=== PATIENT | female | born 1965 | race Caucasian/White ===

== ENCOUNTER 2016-09-13 00:57 | Emergency (ER) | payer OTHER ==
[~2016-09-13] VITALS: Ht 149.9 cm; Wt 90.3 kg
[~2016-09-13 00:57] MED LIST: ADVIN25/60 INH; CYM/60 PO; LOSA100T65 PO; OXYC-106 PO; ZOLP5TAB PO
[2016-09-13 01:05] VITALS: TEMP 36.7; O2SAT 98; Ht 149.9 cm; Wt 90.3 kg
--- NOTE | 2016-09-13 01:28 | EMERGENCY ROOM VISIT NOTE ---
History Report prepared by Fredibreuben: Jovon Marcelino Under the Supervision of: Dr. Nasim Ford D.O. First contact with patient: 01:17 Chief Complaint: FALL Stated Complaint: FALL-HIT FACE-RIGHT SIDE History of Present Illness The patient is a 51 year old female with a history of ALS who presents to the Emergency Room with complaints of an acute fall that occurred earlier tonight. The patient states that she lost her balance causing the fall. She did not fall due to syncope. She hit her face on the ground when she fell. She has not had any dizziness or lightheadedness since the fall. She now complains of headache and neck pain. The patient denies numbness or tingling in the extremities. The patient was seen at [facility] where they did not do anything. Source of History: patient Onset: tonight Position: other (global) Quality: other (fall) Timing: other (acute) Associated Symptoms: + headache, + neck pain, No LOC, No numbness, No weakness Review of Systems See HPI for pertinent positives and negatives. A total of ten systems were reviewed and were otherwise negative. Past Medical & Surgical Medical Problems: (1) ALS (amyotrophic lateral sclerosis) (2) Arthritis (3) Asthma (4) Fibromyalgia Family History Patient reports no known family medical history. Social History Smoking Status: Current Every Day Smoker Marital Status: Housing Status: lives with family Current/Historical Medications Scheduled Duloxetine HCl (Cymbalta), 60 MG PO DAILY Fluticasone Prop/Salmeterol (Advair Diskus 250/50 60 Dose), 1 PUFF INH BID Losartan Potassium (Cozaar), 100 MG PO DAILY Zolpidem Tartrate (Ambien), 5 MG PO HS Scheduled PRN Oxycodone/Acetaminophen 10MG/325MG (Percocet 10MG/325MG), 1 TAB PO DIRECTED PRN for Pain Allergies Coded Allergies: Penicillins (Unverified Allergy, Unknown, UNKNOWN, 12/23/15) Physical Exam Vital Signs Date Time Temp Pulse Resp B/P Pulse Ox O2 Delivery O2 Flow Rate FiO2 09/13/16 01:05 36.7 90 20 158/97 98 Room Air Physical Exam GENERAL: Awake, alert, well-appearing, in no distress HENT: Normocephalic. Abrasion to the left cheek. Oropharynx unremarkable. EYES: Normal conjunctiva. Sclera non-icteric. NECK: Cervical collar in place. RESPIRATORY: Clear to auscultation. CARDIAC: Regular rate, normal rhythm. Extremities warm and well perfused. Pulses equal. ABDOMEN: Soft, non-distended. No tenderness to palpation. No rebound or guarding. No masses. RECTAL: Deferred. MUSCULOSKELETAL: Mild left chest wall tenderness, no obvious deformities no crepitus.. The back is symmetrical on inspection without obvious abnormality. There is no CVA tenderness to palpation. No joint edema. UPPER EXTREMITIES: Flexion contractures of the hands. LOWER EXTREMITIES: Calves are equal size bilaterally and non-tender. No edema. No discoloration. NEURO: Normal sensorium. No sensory or motor deficits noted. SKIN: No rash or jaundice noted. Medical Decision & Procedures ER Provider Diagnostic Interpretation: X ray results as stated below per my interpretation. Other radiology results as stated below per my review and radiologist interpretation Chest One View Portable: Negative Chest X-ray. CT HEAD: No evidence of skull fracture. Clear paranasal sinuses and mastoid air cells. No ICH, mass effect, or edema. Kerns-white differentiation preserved. Sulci, ventricles, and basal cisterns are normal in size and configuration. CT C-SPINE: Mild straightening of the cervical spine without evidence of acute fracture or subluxation. No prevertebral soft tissue swelling. Lung apices clear. Radiologist: Eladio Chatman MD. ED Course 0120: The patient was evaluated in room B6. A complete history and physical exam was performed. 0210: Discussed the discharge instructions with her. She verbalized understanding. The patient will be prepared for discharge. Medical Decision Differential diagnosis includes head contusion, closed head injury, C-spine strain sprain contusion fracture. Impression Primary Impression: Contusion of multiple sites Additional Impression: Closed head injury Scribe Attestation The scribe's documentation has been prepared under my direction and personally reviewed by me in its entirety. I confirm that the note above accurately reflects all work, treatment, procedures, and medical decision making performed by me. Departure Information Dispostion Home / Self-Care Referrals No Doctor, Assigned (PCP) Forms HOME CARE DOCUMENTATION FORM, IMPORTANT VISIT INFORMATION Patient Instructions ED Head Injury Closed, My [facility] Problem Qualifiers Additional Impression: Closed head injury Encounter type: initial encounter Qualified Codes: S09.90XA - Unspecified injury of head, initial encounter
[2016-09-13 02:42] VITALS: BP 158/98; PULSE 86
--- NOTE | 2016-09-13 07:03 | DIAGNOSTIC IMAGING REPORT ---
HEAD CT NONCONTRAST CT DOSE: 1010.00 mGy.cm HISTORY: headache TECHNIQUE: Multiaxial CT images of the head were performed without the use of intravenous contrast. Automated exposure control was utilized for this study. Comparison: None. Findings: The paranasal sinuses and mastoid air cells are clear. The calvarium and skull base are intact. The ventricles and sulci are within normal limits. There is no mass, hematoma, midline shift, or acute infarct. Age-indeterminate nasal bone deformity. Impression: No acute intracranial abnormality. Age-indeterminate nasal bone deformity. Electronically signed by: Yariel Quezada M.D. 09/13/2016 7:02 AM Dictated Date/Time: 09/13/2016 7:01 AM
--- NOTE | 2016-09-13 07:12 | DIAGNOSTIC IMAGING REPORT ---
CERVICAL SPINE CT CT DOSE: HISTORY: cervical pain TECHNIQUE: Multiaxial CT images of the cervical spine were performed and reformatted in the sagittal and coronal plane without the use of contrast. COMPARISON: None. FINDINGS: No fractures. No subluxation. Prevertebral soft tissues and the C1-C2 interval are intact. No pneumothorax. IMPRESSION: No fractures within the cervical spine. Electronically signed by: Yariel Quezada M.D. 09/13/2016 7:11 AM Dictated Date/Time: 09/13/2016 7:09 AM
--- NOTE | 2016-09-13 08:46 | DIAGNOSTIC IMAGING REPORT ---
CHEST ONE VIEW PORTABLE HISTORY: Fall. chest wall pain COMPARISON: None. FINDINGS: The lungs are clear. No pleural effusions. No pneumothorax. The cardiac silhouette is top normal in size. IMPRESSION: No acute process. Electronically signed by: Yariel Quezada M.D. 09/13/2016 8:44 AM Dictated Date/Time: 09/13/2016 8:44 AM
== END 2016-09-13 02:43 | disposition home or self-care (01) ==
LOC: C.EDB 00:58
DX: S09.90XA Unspecified injury of head, initial encounter (principal); T14.8 Other injury of unspecified body region; W01.0XXA Fall on same level from slipping, tripping and stumbling without subsequent striking against object, initial encounter; J45.909 Unspecified asthma, uncomplicated; M19.90 Unspecified osteoarthritis, unspecified site; F17.200 Nicotine dependence, unspecified, uncomplicated; Z79.899 Other long term (current) drug therapy; Z88.0 Allergy status to penicillin